=== PATIENT | female | born 1970 | race Caucasian/White ===

== ENCOUNTER 2019-10-02 02:23 | Emergency (ER) | payer OTHER ==
[~2019-10-02] VITALS: Ht 172.7 cm; Wt 90.7 kg
[2019-10-02] MEDS ORDERED: LYRICA 75 MG CA75 MG PO (02:32)
[2019-10-02] MEDS ORDERED: PERCOCET 5-3251 EACH PO (02:32)
[2019-10-02] MEDS ORDERED: FLEXERIL PO (02:32)
[2019-10-02] MEDS ORDERED: ACYCLOVIR 200200 MG PO (02:33)
[2019-10-02] MEDS ORDERED: XANAX XR0.5 MG PO (02:33)
[2019-10-02 05:58] VITALS: BP 106/56
== END 2019-10-02 05:50 | disposition home or self-care (01) ==
LOC: ER 02:23
DX: S00.03XA Contusion of scalp, initial encounter (principal); F10.129 Alcohol abuse with intoxication, unspecified; Z79.899 Other long term (current) drug therapy; Y90.9 Presence of alcohol in blood, level not specified; W18.39XA Other fall on same level, initial encounter; Y93.89 Activity, other specified; Y92.89 Other specified places as the place of occurrence of the external cause; Y99.8 Other external cause status